=== PATIENT | female | born 1990 | race African-American/Black ===

== ENCOUNTER 2016-06-14 20:00 | Emergency (ER) | payer OTHER ==
[~2016-06-14] VITALS: Ht 162.6 cm; Wt 19.5 kg
[2016-06-14] MEDS ORDERED: ORTHTAB5 PO (20:12)
[2016-06-14] MEDS ORDERED: BACL10TA2 PO (20:12)
[2016-06-14] MEDS ORDERED: TRAM50TA2 PO (20:12)
[2016-06-14] MEDS ORDERED: diphenhydrAMINE INJ 50MG/ML VIAL (J1200) IV STA (21:08)
[2016-06-14] MEDS ORDERED: NS 1,000 ML IV ONE (21:15)
[2016-06-14] MEDS ORDERED: methylPREDNISolone INJ 125 MG/2 ML VIAL (J2930) IV ONE (21:15)
[2016-06-14] MEDS ORDERED: FAMOTIDINE 20 MG TAB PO ONE (21:15)
[2016-06-14 22:21] VITALS: BP 133/84
[2016-06-14] MEDS ORDERED: PRED20TA PO (22:41)
[2016-06-14] MEDS ORDERED: PEPC1TAB4 PO (22:41)
== END 2016-06-14 22:57 | disposition home or self-care (01) ==
LOC: M ED 21:22
DX: R22.1 Localized swelling, mass and lump, neck (principal); Z91.018 Allergy to other foods; M25.559 Pain in unspecified hip; Z79.899 Other long term (current) drug therapy; Z91.012 Allergy to eggs
CPT/HCPCS: 96374; 96375; 99282; J1200; J2930

== ENCOUNTER 2016-07-30 16:18 | Emergency (ER) | payer OTHER ==
[~2016-07-30] VITALS: Ht 162.6 cm; Wt 67.0 kg
[~2016-07-30 16:18] MED LIST: BACL10TA2 PO; ORTHTAB5 PO; PEPC1TAB4 PO; PRED20TA PO; TRAM50TA2 PO
[2016-07-30 16:19] VITALS: BP 135/94
[2016-07-30 17:37] LABS: BASO % 0.8 % (0.0-1.0); LARGE UNSTAINED CELL # 0.1 K/mm3 (0.0-0.4); LARGE UNSTAINED CELL % 2.4 % (0.0-4.0); LYMPH # 2.6 K/mm3 (1.5-6.5); LYMPH % 43.1 % (24.0-44.0); MEAN CORPUSCULAR HEMOGLOBIN 27.4 pg (27.0-33.0); MEAN CORPUSCULAR HGB CONC 32.3 g/dl (32.0-36.5); MEAN CORPUSCULAR VOLUME 84.6 fl (80.0-96.0); MONO # 0.5 K/mm3 (0.0-0.8); MONO % 7.7 % (0.0-5.0); NEUTROPHILS # 2.6 K/mm3 (1.8-7.7); PLATELET COUNT, AUTOMATED 218 k/mm3 (150-450); WHITE BLOOD COUNT 5.8 K/mm3 (4.0-10.0)
[2016-07-30 17:57] LABS: ALBUMIN 4.4 GM/DL (3.2-5.2); ALBUMIN/GLOBULIN RATIO 1.22 (1.00-1.93); ALKALINE PHOSPHATASE 59 U/L (45-117); ALT/SGPT 15 U/L (12-78); ANION GAP 6 MEQ/L (8-16); AST/SGOT 11 U/L (15-37); BILIRUBIN,DIRECT < 0.1 MG/DL (0.0-0.2); BILIRUBIN,TOTAL 0.3 MG/DL (0.2-1.0); BLOOD UREA NITROGEN 9 MG/DL (7-18); CALCIUM LEVEL 9.4 MG/DL (8.5-10.1); CARBON DIOXIDE LEVEL 29 MEQ/L (21-32); CHLORIDE LEVEL 99 MEQ/L (98-107); CREATININE FOR GFR 0.75 MG/DL (0.55-1.02); GLOMERULAR FILTRATION RATE > 60.0 (>60); GLUCOSE, FASTING 82 MG/DL (70-105); HCG, SERUM QUANTITATIVE < 1.0 MIU/ML; POTASSIUM SERUM 3.5 MEQ/L (3.5-5.1); SODIUM LEVEL 134 MEQ/L (136-145)
--- NOTE | 2016-07-30 21:40 | REPUSA ---
CLINICAL HISTORY: Pelvic pain. TECHNIQUE: Realtime sonographic images were obtained in multiple projections. COMMENTS: LMP: 05/09/2016. The uterine size is 7.1 cm in CC x 3.8 cm in AP x 4.8 cm in transverse. AP endometrial thickness polly suring 1.7 mm. There is no evidence of free fluid within the pelvic cul-de-sac. The right ovary measures 3.9 cm in CC x 2.1 cm in AP x 2.4 cm in transverse. Dominant follicle measu ring 1.9 x 1.8 cm. The left ovary measures 2.2 cm in CC x 1.7 cm in AP x 2.0 cm in transverse. There is no evidence for abnormal vascularity. IMPRESSION: Normal uterus and ovaries. Thank you for your kind referral of this patient. We appreciate the opportunity to participate in thi s patient's care.
== END 2016-07-30 22:03 | disposition home or self-care (01) ==
LOC: M ED 17:02
DX: N83.01 Follicular cyst of right ovary (principal); Z32.02 Encounter for pregnancy test, result negative